=== PATIENT | male | born 1995 | race Two or more races ===

== ENCOUNTER 2021-10-22 01:21 | Emergency (ER) | payer MEDICAID ==
[2021-10-22 02:44] LABS: RED BLOOD COUNT 5.51 M/UL (4.20-5.50); WHITE BLOOD COUNT 6.1 K/UL (4.5-11.0)
[2021-10-22 03:09] LABS: BUN/CREATININE RATIO 13 (0-10)
== END 2021-10-22 10:17 | disposition home or self-care (01) ==
LOC: ER1 01:21
PROVIDERS: Emergency Medicine
DX: T51.2X1A Toxic effect of 2-Propanol, accidental (unintentional), initial encounter (principal); F10.10 Alcohol abuse, uncomplicated; E87.6 Hypokalemia; R11.0 Nausea; Y90.0 Blood alcohol level of less than 20 mg/100 ml
CPT/HCPCS: 80053; 82009; 82962; 83605; 83930; 85025; 96365; 96375; 96376; 99285; G0480; J2405; J3480